=== PATIENT | female | born 1965 | race Two or more races ===

== ENCOUNTER 2024-11-11 17:52 | Emergency (ER) | payer OTHER ==
[~2024-11-11] VITALS: Ht 149.9 cm; Wt 54.4 kg
[2024-11-11] MEDS ORDERED: SYNTHROID75 MCG PO (19:24)
[2024-11-11] MEDS ORDERED: SIMVASTATIN80 MG (19:25)
[2024-11-11] MEDS ORDERED: FUROSEMIDE40 MG/4 ML PO (19:27)
[2024-11-11] MEDS ORDERED: ACETAMINOPHEN 500 MG GEL..CAP PO ONE (20:15)
== END 2024-11-11 21:52 | disposition home or self-care (01) ==
LOC: ER 17:54
DX: B34.9 Viral infection, unspecified (principal); R53.81 Other malaise; J06.9 Acute upper respiratory infection, unspecified; Z20.822 Contact with and (suspected) exposure to COVID-19; I10 Essential (primary) hypertension; Z88.6 Allergy status to analgesic agent